=== PATIENT | female | born 1985 | race Caucasian/White ===

== ENCOUNTER 2020-05-23 07:50 | Emergency (ER) | payer OTHER ==
[~2020-05-23] VITALS: Ht 175.3 cm; Wt 102.1 kg
[~2020-05-23 07:50] MED LIST: KEFLEX500 MG PO
== END 2020-05-23 09:05 | disposition home or self-care (01) ==
LOC: ED 07:50
DX: S43.401A Unspecified sprain of right shoulder joint, initial encounter (principal); F17.200 Nicotine dependence, unspecified, uncomplicated; Y93.89 Activity, other specified; X58.XXXA Exposure to other specified factors, initial encounter
CPT/HCPCS: 73030; 99283

== ENCOUNTER 2020-08-25 05:33 | Emergency (ER) | payer OTHER ==
[~2020-08-25] VITALS: Ht 175.3 cm; Wt 108.0 kg
[2020-08-25] MEDS ORDERED: PROTONIX40 MG PO (06:51)
--- NOTE | 2020-08-26 13:17 | EKG ---
[facility] [address] [place], [place] [address] Signed Normal sinus rhythm Rightward axis Borderline ECG No previous ECGs available Confirmed by RONY SINGLETON DO ([id number]) on 08/26/2020 1:16:45 PM Electronically Signed By: RONY SINGLETON DO 08/26/20 1317 PATIENT NAME: ZACHARIAH MENENDEZ Electrocardiogram DATE OF : 89 PHYSICIAN: RONY SINGLETON DO REPORT #: [id number] REPORT IS CONFIDENTIAL AND NOT TO BE RELEASED WITHOUT AUTHORIZATION
== END 2020-08-25 07:00 | disposition home or self-care (01) ==
LOC: ED 05:33
DX: R07.81 Pleurodynia (principal); F17.200 Nicotine dependence, unspecified, uncomplicated
CPT/HCPCS: 71045; 80053; 83690; 83735; 84484; 85025; 85379; 93005; 93010; 96374; 99285-25; J1885

== ENCOUNTER 2020-12-27 03:54 | Emergency (ER) | payer OTHER ==
[~2020-12-27] VITALS: Ht 175.3 cm; Wt 108.0 kg
[~2020-12-27 03:54] MED LIST changes: +PROTONIX40 MG PO
== END 2020-12-27 04:35 | disposition home or self-care (01) ==
LOC: ED 03:54
DX: G89.29 Other chronic pain (principal); M25.521 Pain in right elbow; F17.200 Nicotine dependence, unspecified, uncomplicated
CPT/HCPCS: 99283

== ENCOUNTER 2020-12-29 17:38 | Emergency (ER) | payer OTHER ==
[~2020-12-29] VITALS: Ht 175.3 cm; Wt 108.0 kg
--- OUTSIDE RECORDS SUMMARY | 2020-12-29 17:46 | XMS ---
PreManage Notification: ZACHARIAH MENENDEZ Security Summer Intern Events No recent Security Events currently on file CRITERIA MET - [facility] - 2 Visits in 30 Days CARE PROVIDERS There are no care providers on record at this time. Sarabjit has no Care Guidelines for this patient. [facility] VISIT COUNT (12 MO.) 1 [facility] [address] [facility] TOTAL 5 NOTE: Visits indicate total known visits. ED/UCC VISIT TRACKING (12 MO.) 12/29/2020 17:40 [facility] [place] TYPE: Emergency COMPLAINT: - RT ARM INJURY 12/27/2020 03:55 [facility] [place] TYPE: Emergency COMPLAINT: - RT ELBOW PAIN 08/25/2020 05:33 [facility] TYPE: Emergency COMPLAINT: - CHEST PAIN DIAGNOSES: - Pleurodynia - Chest pain, unspecified - Nicotine dependence, unspecified, uncomplicated - Other chest pain 05/23/2020 07:51 [facility] [place] TYPE: Emergency COMPLAINT: - RIGHT SHOULDER PAIN/INJURY DIAGNOSES: - Pain in right shoulder - Activity, other specified - Nicotine dependence, unspecified, uncomplicated - Exposure to other specified factors, initial encounter - Unspecified sprain of right shoulder joint, initial encounter 01/24/2020 00:20 [facility] TYPE: Emergency DIAGNOSES: - flank pain - Unspecified abdominal pain - Urinary tract infection, site not specified INPATIENT VISIT TRACKING (12 MO.) No inpatient visits to display in this time frame [email or web address]
== END 2020-12-29 22:21 | disposition home or self-care (01) ==
LOC: ED 17:38
DX: M25.521 Pain in right elbow (principal)
CPT/HCPCS: 73080; 99283-25